=== PATIENT | female | born 1965 | race Caucasian/White ===

== ENCOUNTER 2016-12-17 23:05 | Inpatient (IN) | payer BC ==
--- NOTE | ~2016-12-17 | HP ---
History And Physical [address] [place]. [address] NAME: ESTER AMBROCIO : 61 STATUS : ADM IN [facility]#: [id number] AGE: 51 ADM/REG DATE : 12/18/16 MR#: [id number] REPORT SERV DATE: 12/18/16 DICTATED BY: TATY BOWERS JR. DATE: 12/18/16 REPORT STATUS : Draft TRANSCRIBED BY: MODAdolph DATE: 12/18/16 DATE OF ADMISSION: 12/18/2016 CHIEF COMPLAINT: Abdominal pain. HISTORY OF PRESENT ILLNESS: This is a 51-year-old female. She presented to the emergency department with complaints of severe pain in the right upper quadrant. She has had intermittent pain like this in the past which has usually resolved in several hours, but this did not resolve. She came to the ER, where she had tenderness in the right upper quadrant, had a CT which was unremarkable with an ultrasound, which showed cholelithiasis and gallbladder wall thickening. She also had elevated white count of 16,000. She was admitted with a diagnosis of acute cholecystitis. She was given antibiotics and analgesics and IV fluids. She feels better this morning, but does have some residual pain. PAST MEDICAL HISTORY: Remarkable for tubal ligation. She has had some asthma, hypertension, and irritable bowel syndrome. SOCIAL HISTORY: She is single. She does not smoke. FAMILY HISTORY: Remarkable for diabetes. REVIEW OF SYSTEMS: No weakness, fever, chills. HEENT: Negative. NEURO: Negative. SKIN: Negative. RESPIRATORY: Negative except for asthma. CV: Negative. : No symptoms. MUSCULOSKELETAL: Negative. ENDOCRINE: Negative. HEMATOLOGY: Negative. PSYCHIATRIC: Negative. PHYSICAL EXAMINATION: GENERAL: Shows a middle-aged female, who is in no acute distress at present. HEENT: Head and neck exam shows pupils equal, round, and reactive. There are no icteric changes. Mucous membranes are slightly dry. NECK: Supple. There is no mass or thyromegaly. LUNGS: Clear bilaterally. CARDIOVASCULAR: Shows normal S1 and S2 without murmur. ABDOMEN: Soft. There is tenderness in the right upper quadrant. There are no masses. No hepatosplenomegaly. EXTREMITIES: Show no clubbing, cyanosis, or edema. NEUROLOGIC: She is alert and oriented. No focal findings. Appropriate affect. History And Physical [address] [place]. [address] NAME: ESTER AMBROCIO : 61 STATUS : ADM IN [facility]#: [id number] AGE: 51 ADM/REG DATE : 12/18/16 MR#: [id number] REPORT SERV DATE: 12/18/16 DICTATED BY: TATY BOWERS JR. DATE: 12/18/16 REPORT STATUS : Draft TRANSCRIBED BY: MODL DATE: 12/18/16 LABORATORY DATA: Studies are reviewed. IMPRESSION: Acute cholecystitis. PLAN: We will proceed with admission, give IV fluids, IV antibiotics, and analgesics sedated, but elected to proceed with a laparoscopic cholecystectomy on 12/19/2016. Details of the risks of the operation were discussed. She understands and agrees. SHAVON/SAMREEN Taty Bowers Jr., M.D. / [id number] CC: Paulina Palomino Jr., M.D.
--- NOTE | ~2016-12-17 | OP ---
Record Of Operation [facility] [address] [place]. [address] NAME: ESTER AMBROCIO : 61 STATUS : ADM IN [facility]#: [id number] AGE: 51 ADM/REG DATE : 12/18/16 MR#: [id number] REPORT SERV DATE: 12/20/16 DICTATED BY: TATY SANCHEZ JR. DATE: 12/19/16 REPORT STATUS : Draft TRANSCRIBED BY: MODL DATE: 12/19/16 DATE OF PROCEDURE: SURGEON: Dr. Taty Sanchez. SMELTING ENGINEER: Julito Saxena. PROCEDURE: Laparoscopic cholecystectomy with intraoperative cholangiography. PREOPERATIVE DIAGNOSIS: Acute cholecystitis with cholelithiasis. POSTOPERATIVE DIAGNOSIS: Acute cholecystitis with cholelithiasis. ANESTHESIA: General. INDICATIONS: The patient had come to the emergency room with complaints of severe upper abdominal pain. She has had previous episodes of similar pain which had resolved quickly, this then persisted. Imaging includes ultrasound which showed cholelithiasis with thickened gallbladder wall and slight dilatation of the common bile duct. She was given antibiotics and had some improvement in her pain. Cholecystectomy was indicated along with cholangiography. FINDINGS: On laparoscopic examination of the abdomen, there was gross evidence of acute cholecystitis with edema and inflammation in the gallbladder. It did contain multiple stones. Intraoperative cholangiography was performed with C-arm fluoroscopy which showed free flow into the duodenum with no obstructing lesion. There is vein opacification of the proximal hepatic ducts. There was a filling defect in the cystic duct, question air bubble. The gallbladder was removed successfully. Attempts were made to milk any small stone from the cystic duct and there was nothing seen. The gallbladder was packed with fairly large stones. No significant findings were encountered. DESCRIPTION OF PROCEDURE: With adequate general anesthesia, the patient was placed in the supine position. The abdomen was prepped and draped sterilely. 0.5% Marcaine was used for local infiltration at all trocar sites. An infraumbilical incision was made. The dissection was carried down sharply through the subcutaneous tissues. The fascia and peritoneum were opened. The peritoneal cavity was entered. A balloon tipped trocar was introduced and the abdomen was inflated with CO2. The laparoscope was introduced with the above-noted findings. Under direct vision, a 10/11 trocar was placed in the epigastric region and two 5s in the subcostal. The gallbladder was identified, grasped, and retracted in a cephalad manner. The cystic duct was identified, dissected free, clipped proximally, and partially opened. An Arrow type cholangiogram catheter was introduced and secured with a clip and 50% Hypaque was injected under C-arm fluoroscopy with the above-noted findings. Then, this was removed. The duct was doubly clipped and divided and then some of the cystic duct and artery were identified and clipped and divided. The gallbladder was taken from its bed with electrocautery. It was extracted through the umbilical site and submitted to Pathology. Bleeding was controlled with electrocautery. The wound was irrigated with Record Of Operation [facility] [id number] [place]. [address] NAME: ESTER AMBROCIO : 61 STATUS : ADM IN [facility]#: [id number] AGE: 51 ADM/REG DATE : 12/18/16 MR#: [id number] REPORT SERV DATE: 12/20/16 DICTATED BY: TATY SANCHEZ JR. DATE: 12/19/16 REPORT STATUS : Draft TRANSCRIBED BY: SAMREEN DATE: 12/19/16 saline. Hemostasis was assured. There was no evidence of any bleeding or bile leak. All trocars were removed under direct vision. The umbilical site was closed for the fascial layer with [id number] PDS. All wounds were then closed with dermal Monocryl. Sterile dressings were applied. The patient left the operating room in satisfactory condition. ESTIMATED BLOOD LOSS: 30 mL. SHAVON/SAMREEN Taty Sanchez Jr., M.D. / [id number] CC: Paulina Palomino Jr., M.D.
[2016-12-17 21:57] LABS: WBC (NOT ORDERED) (RFLEX) 0 (0-5)
[2016-12-17 22:00] LABS: BASOPHILS 0.1 %; BASOPHILS ABSOLUTE 0.02 10/3/uL (0.0-0.16); EOSINOPHILS 0.2 %; EOSINOPHILS ABSOLUTE 0.04 10/3/uL (0.0-0.53); HEMATOCRIT 41.6 % (36.0-48.0); HEMOGLOBIN 14.3 g/dL (12.0-16.0); IMMATURE GRANULOCYTES 0.5 %; IMMATURE GRANULOCYTES ABSOLUTE 0.08 10/3/uL (0.0-0.11); LYMPHOCYTES 8.4 %; LYMPHOCYTES ABSOLUTE 1.37 10/3/uL (0.67-4.30); MEAN CORPUSCULAR VOLUME 93.1 fL (80-100); MEAN PLATELET VOLUME 10.4 fL (9.2-13.0); MONOCYTES 3.7 %; MONOCYTES ABSOLUTE 0.61 10/3/uL (0.21-1.20); NEUTROPHILS 87.1 %; NEUTROPHILS ABSOLUTE 14.18 10/3/uL (2.02-8.40); PLATELET COUNT 255 10/3/uL (150-400); RED CELL COUNT 4.47 10/6/uL (4.0-5.6)
[2016-12-17 22:01] LABS: MANUAL DIFF NO %; MEAN CORPUS HGB CONC 34.4 g/dL (32.0-36.0); WHITE BLOOD CELLS 16.3 10/3/uL (4.5-10.5)
[2016-12-17 22:04] LABS: ASCORBIC ACID (UR NOT ORDER) NEG (NEG); BILIRUBIN, URINE NEGATIVE (NEG); ER URINALYSIS TAT 0 Hrs 09 Mins; KETONE, URINE 80 MG/DL (NEG); LEUKOCYTE ESTERASE(NOT OR NEG (NEG); NITRITE (URINE) NEG (NEG)
[2016-12-17 22:16] LABS: A/G RATIO 1.2 (0.7-1.9); ALBUMIN 4.1 G/DL (3.5-5.0); BUN (BLOOD UREA NITROGEN) 13 MG/DL (6-23); CALCIUM, SERUM 9.2 MG/DL (8.5-10.4); CHLORIDE, SERUM 102 MMOL/L (96-112); CO2 (CARBON DIOXIDE) 29 MMOL/L (24-34); CREATININE 0.98 MG/DL (0.55-1.02); GFR AFRICAN AMERICAN 76 ML/MIN (>=60); GFR NON AFRICAN AMERICAN 66 ML/MIN (>=60); GLOBULIN 3.4 G/DL (2.5-4.1); POTASSIUM, SERUM 4.1 MMOL/L (3.5-5.3); SGOT(AST) 33 U/L (5-40); SGPT(ALT) 70 U/L (5-65); SODIUM, SERUM 137 MMOL/L (135-148); TOTAL BILIRUBIN 0.4 MG/DL (0-1.2); TOTAL PROTEIN 7.5 G/DL (6.0-8.5)
[2016-12-17 22:17] LABS: ALKALINE PHOSPHATASE 53 U/L (45-117); GLUCOSE, SERUM 129 MG/DL (60-99)
[~2016-12-17 23:05] MED LIST: ALEVE220 MG PO; AMITIZA8 MCG PO; ATEN25 PO; DAYQUIL; FLONASE NAS; HORMONE INJECTION IM; MAX25 PO; MEDROXYPR AC5 MG PO; PROAIR HFA INH; VITAMIN B12 PO; VITAMIN D PO
[2016-12-17 23:44] LABS: DIRECT BILIRUBIN 0.1 MG/DL (0.0-0.4); INDIRECT BILIRUBIN(NOT ORDER) 0.3 MG/DL (0.1-0.9)
[2016-12-18 06:03] LABS: BASOPHILS 0.1 %; BASOPHILS ABSOLUTE 0.02 10/3/uL (0.0-0.16); EOSINOPHILS 1.7 %; EOSINOPHILS ABSOLUTE 0.24 10/3/uL (0.0-0.53); HEMATOCRIT 40.6 % (36.0-48.0); IMMATURE GRANULOCYTES 0.4 %; IMMATURE GRANULOCYTES ABSOLUTE 0.06 10/3/uL (0.0-0.11); LYMPHOCYTES 15.2 %; LYMPHOCYTES ABSOLUTE 2.21 10/3/uL (0.67-4.30); MEAN CORPUS HGB CONC 34.5 g/dL (32.0-36.0); MEAN CORPUSCULAR HEMOGLOB 32.3 pg (26.0-34.0); MEAN CORPUSCULAR VOLUME 93.8 fL (80-100); MEAN PLATELET VOLUME 10.5 fL (9.2-13.0); MONOCYTES 5.8 %; MONOCYTES ABSOLUTE 0.84 10/3/uL (0.21-1.20); NEUTROPHILS 76.8 %; NEUTROPHILS ABSOLUTE 11.14 10/3/uL (2.02-8.40); PLATELET COUNT 236 10/3/uL (150-400); RBC DISTRIBUTION WIDTH 12.9 % (12.0-16.0); RED CELL COUNT 4.33 10/6/uL (4.0-5.6); WHITE BLOOD CELLS 14.5 10/3/uL (4.5-10.5)
[2016-12-18 06:05] LABS: MANUAL DIFF NO %
[2016-12-18 06:20] LABS: CHLORIDE, SERUM 104 MMOL/L (96-112); CREATININE 0.89 MG/DL (0.55-1.02); GFR AFRICAN AMERICAN 86 ML/MIN (>=60); GFR NON AFRICAN AMERICAN 74 ML/MIN (>=60); POTASSIUM, SERUM 3.6 MMOL/L (3.5-5.3); SGOT(AST) 24 U/L (5-40); SGPT(ALT) 52 U/L (5-65); SODIUM, SERUM 138 MMOL/L (135-148); TOTAL BILIRUBIN 0.4 MG/DL (0-1.2); TOTAL PROTEIN 6.4 G/DL (6.0-8.5)
[2016-12-18 06:23] LABS: ALBUMIN 3.2 G/DL (3.5-5.0); ALKALINE PHOSPHATASE 41 U/L (45-117); BUN (BLOOD UREA NITROGEN) 9 MG/DL (6-23); CALCIUM, SERUM 8.2 MG/DL (8.5-10.4); CO2 (CARBON DIOXIDE) 24 MMOL/L (24-34); GLOBULIN 3.2 G/DL (2.5-4.1); GLUCOSE, SERUM 96 MG/DL (60-99)
[2016-12-19 06:17] LABS: BASOPHILS 0.2 %; BASOPHILS ABSOLUTE 0.02 10/3/uL (0.0-0.16); EOSINOPHILS 4.6 %; EOSINOPHILS ABSOLUTE 0.48 10/3/uL (0.0-0.53); HEMATOCRIT 37.9 % (36.0-48.0); HEMOGLOBIN 12.8 g/dL (12.0-16.0); IMMATURE GRANULOCYTES 0.4 %; IMMATURE GRANULOCYTES ABSOLUTE 0.04 10/3/uL (0.0-0.11); LYMPHOCYTES 21.5 %; LYMPHOCYTES ABSOLUTE 2.23 10/3/uL (0.67-4.30); MEAN CORPUS HGB CONC 33.8 g/dL (32.0-36.0); MEAN CORPUSCULAR HEMOGLOB 31.9 pg (26.0-34.0); MEAN CORPUSCULAR VOLUME 94.5 fL (80-100); MEAN PLATELET VOLUME 10.8 fL (9.2-13.0); MONOCYTES 6.9 %; MONOCYTES ABSOLUTE 0.71 10/3/uL (0.21-1.20); NEUTROPHILS 66.4 %; NEUTROPHILS ABSOLUTE 6.88 10/3/uL (2.02-8.40); PLATELET COUNT 221 10/3/uL (150-400); RBC DISTRIBUTION WIDTH 13.1 % (12.0-16.0); RED CELL COUNT 4.01 10/6/uL (4.0-5.6); WHITE BLOOD CELLS 10.4 10/3/uL (4.5-10.5)
[2016-12-19 06:18] LABS: MANUAL DIFF NO %
[2016-12-19 06:41] LABS: A/G RATIO 1.1 (0.7-1.9); ALBUMIN 3.1 G/DL (3.5-5.0); ALKALINE PHOSPHATASE 36 U/L (45-117); CALCIUM, SERUM 8.3 MG/DL (8.5-10.4); CHLORIDE, SERUM 110 MMOL/L (96-112); CO2 (CARBON DIOXIDE) 24 MMOL/L (24-34); CREATININE 0.88 MG/DL (0.55-1.02); GFR AFRICAN AMERICAN 87 ML/MIN (>=60); GFR NON AFRICAN AMERICAN 75 ML/MIN (>=60); GLOBULIN 2.9 G/DL (2.5-4.1); GLUCOSE, SERUM 85 MG/DL (60-99); POTASSIUM, SERUM 3.9 MMOL/L (3.5-5.3); SGOT(AST) 14 U/L (5-40); SGPT(ALT) 37 U/L (5-65); SODIUM, SERUM 142 MMOL/L (135-148); TOTAL BILIRUBIN 0.5 MG/DL (0-1.2)
[2016-12-19 06:42] LABS: BUN (BLOOD UREA NITROGEN) 5 MG/DL (6-23)
[2016-12-20 06:48] LABS: BASOPHILS 0.1 %; BASOPHILS ABSOLUTE 0.02 10/3/uL (0.0-0.16); EOSINOPHILS 0.2 %; EOSINOPHILS ABSOLUTE 0.03 10/3/uL (0.0-0.53); HEMATOCRIT 37.6 % (36.0-48.0); HEMOGLOBIN 12.7 g/dL (12.0-16.0); IMMATURE GRANULOCYTES 0.3 %; IMMATURE GRANULOCYTES ABSOLUTE 0.04 10/3/uL (0.0-0.11); LYMPHOCYTES 10.8 %; LYMPHOCYTES ABSOLUTE 1.44 10/3/uL (0.67-4.30); MANUAL DIFF NO %; MEAN CORPUS HGB CONC 33.8 g/dL (32.0-36.0); MEAN CORPUSCULAR VOLUME 94.7 fL (80-100); MEAN PLATELET VOLUME 11.1 fL (9.2-13.0); MONOCYTES 5.5 %; MONOCYTES ABSOLUTE 0.73 10/3/uL (0.21-1.20); NEUTROPHILS 83.1 %; NEUTROPHILS ABSOLUTE 11.09 10/3/uL (2.02-8.40); PLATELET COUNT 236 10/3/uL (150-400); RBC DISTRIBUTION WIDTH 12.8 % (12.0-16.0); RED CELL COUNT 3.97 10/6/uL (4.0-5.6); WHITE BLOOD CELLS 13.4 10/3/uL (4.5-10.5)
[2016-12-20 07:02] LABS: A/G RATIO 0.9 (0.7-1.9); ALBUMIN 3.1 G/DL (3.5-5.0); ALKALINE PHOSPHATASE 40 U/L (45-117); BUN (BLOOD UREA NITROGEN) 7 MG/DL (6-23); CALCIUM, SERUM 8.3 MG/DL (8.5-10.4); CHLORIDE, SERUM 106 MMOL/L (96-112); CO2 (CARBON DIOXIDE) 25 MMOL/L (24-34); CREATININE 0.96 MG/DL (0.55-1.02); GFR AFRICAN AMERICAN 78 ML/MIN (>=60); GFR NON AFRICAN AMERICAN 68 ML/MIN (>=60); GLOBULIN 3.3 G/DL (2.5-4.1); GLUCOSE, SERUM 104 MG/DL (60-99); POTASSIUM, SERUM 3.8 MMOL/L (3.5-5.3); SGOT(AST) 39 U/L (5-40); SGPT(ALT) 57 U/L (5-65); SODIUM, SERUM 138 MMOL/L (135-148); TOTAL BILIRUBIN 1.6 MG/DL (0-1.2); TOTAL PROTEIN 6.4 G/DL (6.0-8.5)
[2016-12-20] MEDS ORDERED: LEVAQUIN750 MG PO (10:26)
[2016-12-20] MEDS ORDERED: PCET PO (10:27)
== END 2016-12-20 13:33 | disposition home or self-care (01) | DRG 419 ==
LOC: ER 23:05 → 2SO 12-18 00:44
PROVIDERS: Emergency Medicine; Specialist
PROC: 0FT44ZZ Resection of Gallbladder, Percutaneous Endoscopic Approach (ICD-10-PCS; principal; 2016-12-18)
PROC: BF101ZZ Fluoroscopy of Bile Ducts using Low Osmolar Contrast (ICD-10-PCS; 2016-12-18)
DX: K80.00 Calculus of gallbladder with acute cholecystitis without obstruction (principal); I10 Essential (primary) hypertension; J45.909 Unspecified asthma, uncomplicated; K58.9 Irritable bowel syndrome, unspecified; F41.9 Anxiety disorder, unspecified
CPT/HCPCS: 74176; 74300; 76705; 80053; 81001; 82248; 83690; 83735; 84703; 85025; 88304; 93005; 96374; 96375; 99285; A9270-GY; C1726; C9113; J1170; J1885; J2250; J2405; J2543; J2710; J3010; Q9967